=== PATIENT | male | born 1950 | race Caucasian/White ===

== ENCOUNTER 2018-08-22 10:00 | Day surgery (SDC) | payer OTHER ==
[2018-08-22 10:53] LABS: ADD MAN DIFF? NO
[2018-08-22 11:00] LABS: WHITE BLOOD COUNT 9.9 10^3/ul (4.8-10.8)
[2018-08-22 11:00] LABS: BASOPHILS % 0.4 % (0.0-2.0); EOSINOPHILS # 0.3 10^3/ul (0.0-0.5); EOSINOPHILS % 2.8 % (0.0-7.0); HEMATOCRIT 43.8 % (42.0-52.0); HEMOGLOBIN 14.4 g/dl (14.0-18.0); LYMPHOCYTES # 2.4 10^3/ul (0.8-2.9); LYMPHOCYTES % 23.8 % (15.0-51.0); MEAN CORPUSCULAR HEMOGLOBIN 29.3 pg (29.0-33.0); MEAN CORPUSCULAR HGB CONC 32.9 g/dl (32.0-37.0); MEAN CORPUSCULAR VOLUME 89.2 fl (82.0-101.0); MEAN PLATELET VOLUME 10.4 fl (7.4-10.4); MONOCYTE # 0.7 10^3/ul (0.3-0.9); MONOCYTES % 6.8 % (0.0-11.0); NEUTROPHIL # 6.5 10^3/ul (1.6-7.5); PLATELET COUNT 275 10^3/UL (140-415); RED BLOOD COUNT 4.91 10^6/ul (4.70-6.10)
[2018-08-22 11:10] LABS: INR 1.07; PARTIAL THROMBOPLASTIN TIME 30.9 Sec (23.0-35.0); PT RATIO 1.1
[2018-08-22 11:14] LABS: ALANINE AMINOTRANSFERASE 23 IU/L (13-69); ALBUMIN 4.4 g/dl (3.3-4.9); ALBUMIN/GLOBULIN RATIO 1.37; ALKALINE PHOSPHATASE 101 IU/L (42-121); ANION GAP 9 (5-13); ASPARTATE AMINO TRANSFERASE 24 IU/L (15-46); BILIRUBIN,INDIRECT 0.8 mg/dl (0-1.1); BILIRUBIN,TOTAL 0.8 mg/dl (0.2-1.3); BLOOD UREA NITROGEN 16 mg/dl (7-20); CALCIUM 9.5 mg/dl (8.4-10.2); CARBON DIOXIDE 27 mmol/L (21-31); CHLORIDE 108 mmol/L (97-110); CREATININE 0.68 mg/dl (0.61-1.24); Estimated GFR > 60 mL/min (>60); GLUCOSE 120 mg/dl (70-220); POTASSIUM 4.2 mmol/L (3.5-5.1); SODIUM 144 mmol/L (135-144); TOTAL PROTEIN 7.6 g/dl (6.1-8.1)
[2018-08-22] MEDS ORDERED: ROPIVACAINE 0.5 % 30 ML VIAL (11:20)
[2018-08-22] MEDS ORDERED: POLYMYXIN/BACITRACIN 1L IRRIG (11:20)
== END 2018-08-22 13:00 | disposition home or self-care (01) ==
LOC: SDS 10:00
DX: M13.871 Other specified arthritis, right ankle and foot (principal); Z53.8 Procedure and treatment not carried out for other reasons; Z79.02 Long term (current) use of antithrombotics/antiplatelets; I11.0 Hypertensive heart disease with heart failure; I50.32 Chronic diastolic (congestive) heart failure; E78.2 Mixed hyperlipidemia; E11.36 Type 2 diabetes mellitus with diabetic cataract; E11.51 Type 2 diabetes mellitus with diabetic peripheral angiopathy without gangrene; Z86.73 Personal history of transient ischemic attack (TIA), and cerebral infarction without residual deficits; Z87.891 Personal history of nicotine dependence
CPT/HCPCS: 80053; 82962; 85025; 85610; 85730

== ENCOUNTER 2018-08-30 05:37 | Inpatient (IN) | payer OTHER ==
[2018-08-30 06:41] LABS: ADD MAN DIFF? NO
[2018-08-30 06:45] LABS: BASOPHIL # 0.1 10^3/ul (0.0-0.1); BASOPHILS % 0.5 % (0.0-2.0); EOSINOPHILS # 0.4 10^3/ul (0.0-0.5); EOSINOPHILS % 3.4 % (0.0-7.0); HEMATOCRIT 42.2 % (42.0-52.0); HEMOGLOBIN 13.6 g/dl (14.0-18.0); LYMPHOCYTES # 2.5 10^3/ul (0.8-2.9); LYMPHOCYTES % 23.4 % (15.0-51.0); MEAN CORPUSCULAR HEMOGLOBIN 28.8 pg (29.0-33.0); MEAN CORPUSCULAR HGB CONC 32.2 g/dl (32.0-37.0); MEAN CORPUSCULAR VOLUME 89.4 fl (82.0-101.0); MEAN PLATELET VOLUME 11.3 fl (7.4-10.4); MONOCYTE # 0.9 10^3/ul (0.3-0.9); MONOCYTES % 8.1 % (0.0-11.0); NEUTROPHIL # 6.8 10^3/ul (1.6-7.5); NEUTROPHILS % 64.1 % (39.0-77.0); PLATELET COUNT 215 10^3/UL (140-415); RED BLOOD COUNT 4.72 10^6/ul (4.70-6.10); RED CELL DISTRIBUTION WIDTH 12.9 % (11.5-14.5)
[2018-08-30 06:45] LABS: WHITE BLOOD COUNT 10.6 10^3/ul (4.8-10.8)
[2018-08-30 06:47] LABS: INR 1.05; PROTIME 13.8 Sec (11.9-14.9); PT RATIO 1.1
[2018-08-30 06:48] LABS: PARTIAL THROMBOPLASTIN TIME 30.4 Sec (23.0-35.0)
[2018-08-30 06:50] LABS: UR BACTERIA FEW /HPF (NONE SEEN); UR HYALINE CAST FEW /HPF (NONE SEEN); UR MUCUS FEW /HPF (NONE SEEN); UR RBC 1 /HPF (0-5); UR WBC 1 /HPF (0-5)
[2018-08-30 06:51] LABS: ALANINE AMINOTRANSFERASE 27 IU/L (13-69); ALBUMIN 4.2 g/dl (3.3-4.9); ALKALINE PHOSPHATASE 86 IU/L (42-121); ANION GAP 11 (5-13); ASPARTATE AMINO TRANSFERASE 22 IU/L (15-46); BILIRUBIN,INDIRECT 0.6 mg/dl (0-1.1); BILIRUBIN,TOTAL 0.6 mg/dl (0.2-1.3); BLOOD UREA NITROGEN 20 mg/dl (7-20); CALCIUM 9.6 mg/dl (8.4-10.2); CARBON DIOXIDE 26 mmol/L (21-31); CHLORIDE 106 mmol/L (97-110); CREATININE 0.81 mg/dl (0.61-1.24); Estimated GFR > 60 mL/min (>60); GLUCOSE 112 mg/dl (70-220); POTASSIUM 4.3 mmol/L (3.5-5.1); SODIUM 143 mmol/L (135-144); TOTAL PROTEIN 7.2 g/dl (6.1-8.1)
[2018-08-30] MEDS ORDERED: DESFLURANE 15 MIN (07:00)
[2018-08-30 07:01] LABS: ADD UMIC YES; UR ASCORBIC ACID NEGATIVE (NEGATIVE); UR BILIRUBIN (Dip) NEGATIVE (NEGATIVE); UR BLOOD (Dip) 1+ mg/dL (NEGATIVE); UR CLARITY CLEAR (CLEAR); UR COLOR YELLOW (YELLOW); UR GLUCOSE (Dip) NEGATIVE (NEGATIVE); UR KETONES (Dip) NEGATIVE (NEGATIVE); UR LEUKOCYTE ESTERASE (Dip) NEGATIVE Leu/ul (NEGATIVE); UR NITRITE (Dip) NEGATIVE (NEGATIVE); UR TOTAL PROTEIN (Dip) NEGATIVE (NEGATIVE); UR UROBILINOGEN (Dip) NEGATIVE (NEGATIVE)
[2018-08-30] MEDS ORDERED: ROCURONIUM 50 MG INJ ×2 (07:23→11:24)
[2018-08-30] MEDS ORDERED: MIDAZOLAM 1 MG/ML 2 ML INJ (07:23)
[2018-08-30] MEDS ORDERED: CEFAZOLIN 1 GM INJ (07:23)
[2018-08-30] MEDS ORDERED: PROPOFOL 20 ML (07:23)
[2018-08-30] MEDS ORDERED: METOCLOPRAMIDE 10 MG INJ (07:24)
[2018-08-30] MEDS ORDERED: ROPIVACAINE 0.5 % 30 ML VIAL ×2 (07:24→07:32)
[2018-08-30] MEDS ORDERED: ONDANSETRON 4 MG INJ (07:24)
[2018-08-30] MEDS ORDERED: FENTAnyl 50 MCG/ML VIAL (07:26)
[2018-08-30] MEDS ORDERED: DIPHENHYDRAMINE 25 MG CAP PO (08:00)
[2018-08-30] MEDS ORDERED: CEFAZOLIN 1 GM INJ IV (08:00)
[2018-08-30] MEDS ORDERED: SODIUM CL BACTERIOSTATIC 30 ML INJ (08:03)
[2018-08-30] MEDS ORDERED: hydrALAzine 20 MG INJ IV (08:30)
[2018-08-30] MEDS ORDERED: FENTAnyl 50 MCG/ML VIAL IV ×3 (08:30)
[2018-08-30] MEDS ORDERED: LABETALOL HCL 20MG INJ IV (08:30)
[2018-08-30] MEDS ORDERED: HYDROmorphONE 1 MG/5 ML IV SYRINGE IV ×3 (08:30)
[2018-08-30] MEDS ORDERED: OXYCODONE/ACETAMINOPHEN (5/325) TAB PO ×2 (08:30)
[2018-08-30] MEDS ORDERED: ALBUTEROL 0.083% (NEB) 2.5 MG/3 ML AMP HHN (08:30)
[2018-08-30] MEDS ORDERED: ONDANSETRON 4 MG INJ IV (08:30)
[2018-08-30] MEDS ORDERED: EPHEDrine SULFATE 50 MG/5 ML SYG IV (08:30)
[2018-08-30] MEDS ORDERED: MEPERIDINE 25 MG INJ IV (08:30)
[2018-08-30] MEDS ORDERED: DIPHENHYDRAMINE 50 MG INJ IV (08:30)
[2018-08-30] MEDS: POLYMYXIN/BACITRACIN 1L IRRIG (08:41)
[2018-08-30] MEDS: HEPARIN 1000 UNITS/ML 10 ML INJ (08:41)
[2018-08-30] MEDS ORDERED: HYDROmorphONE 2 MG/ML SYG (08:52)
[2018-08-30] MEDS ORDERED: POLYMYXIN/BACITRACIN 1L IRRIG (09:45)
[2018-08-30] MEDS ORDERED: hydrALAzine 20 MG INJ (10:53)
[2018-08-30] MEDS ORDERED: EPHEDrine 50 MG INJ ×2 (11:36→11:43)
[2018-08-30] MEDS ORDERED: CHOLECALCIFEROL 2,000 UNIT CAP PO (12:30)
[2018-08-30] MEDS: GABAPENTIN 300 MG CAP PO ×2 (14:22→21:04)
[2018-08-30] MEDS: ASCORBIC ACID 500 MG TAB PO (14:23)
[2018-08-30] MEDS: oxyCODONE 5 MG TAB PO ×3 (14:23→21:00)
[2018-08-30] MEDS: CHOLECALCIFEROL 1,000 UNIT TAB PO (14:50)
[2018-08-30] MEDS ORDERED: GLUCOSE GEL 15 GRAM TUBE PO ×2 (15:00)
[2018-08-30] MEDS ORDERED: GLUCAGON 1 MG INJ IM (15:00)
[2018-08-30] MEDS ORDERED: DEXTROSE 50% 50 ML SYRINGE IV ×2 (15:00)
[2018-08-30] MEDS ORDERED: GLUCOSE GEL 15 GRAM TUBE BUCCAL (15:00)
[2018-08-30] MEDS: CEFAZOLIN 1 GM/50 ML (PMX) 50 ML IVPB ×2 (15:21→23:49)
[2018-08-30] MEDS: ASPIRIN (EC) 81 MG TAB PO (15:22)
[2018-08-30] MEDS: HYDROmorphONE 1 MG/ML SYG IV ×2 (15:23→21:03)
[2018-08-30] MEDS ORDERED: ZOLPIDEM 5 MG TAB PO (15:30)
[2018-08-30] MEDS: ONDANSETRON 4 MG INJ IV (15:30)
[2018-08-30] MEDS: ACCU-CHEK XX ×2 (17:54→21:16)
[2018-08-30] MEDS: metFORMIN 500 MG TAB PO (17:54)
[2018-08-30] MEDS: INSULIN ASPART [NOVOLOG] 3 ML PEN SC ×2 (17:57→21:16)
[2018-08-30] MEDS ORDERED: NITROGLYCERIN (SL) 0.4 MG TAB SL (20:00)
[2018-08-30] MEDS: LOSARTAN 50 MG TAB PO (21:04)
[2018-08-30] MEDS: ATORVASTATIN 40 MG TAB PO (21:04)
[2018-08-30] MEDS: RANITIDINE 150 MG TAB PO (21:04)
[2018-08-31 01:24] LABS: TROPONIN-I < 0.012 ng/ml (0.000-0.120)
[2018-08-31] MEDS: oxyCODONE 5 MG TAB PO ×6 (01:34→21:00)
[2018-08-31] MEDS: ACCU-CHEK XX ×5 (01:39→21:00)
[2018-08-31] MEDS: HYDROmorphONE 1 MG/ML SYG IV ×5 (04:02→21:11)
[2018-08-31 05:17] LABS: BASOPHILS % 0.3 % (0.0-2.0); EOSINOPHILS # 0.1 10^3/ul (0.0-0.5); EOSINOPHILS % 0.6 % (0.0-7.0); HEMATOCRIT 33.9 % (42.0-52.0); HEMOGLOBIN 10.9 g/dl (14.0-18.0); LYMPHOCYTES # 1.3 10^3/ul (0.8-2.9); LYMPHOCYTES % 13.3 % (15.0-51.0); MEAN CORPUSCULAR HEMOGLOBIN 29.2 pg (29.0-33.0); MEAN CORPUSCULAR HGB CONC 32.2 g/dl (32.0-37.0); MEAN CORPUSCULAR VOLUME 90.9 fl (82.0-101.0); MEAN PLATELET VOLUME 10.3 fl (7.4-10.4); MONOCYTE # 1.3 10^3/ul (0.3-0.9); MONOCYTES % 13.4 % (0.0-11.0); NEUTROPHIL # 6.8 10^3/ul (1.6-7.5); PLATELET COUNT 182 10^3/UL (140-415); RED BLOOD COUNT 3.73 10^6/ul (4.70-6.10); RED CELL DISTRIBUTION WIDTH 13.3 % (11.5-14.5)
[2018-08-31 05:17] LABS: WHITE BLOOD COUNT 9.5 10^3/ul (4.8-10.8)
[2018-08-31 05:18] LABS: ADD MAN DIFF? NO
[2018-08-31 05:41] LABS: CHOL/HDL RATIO 2.1 RATIO; LDL CHOLESTEROL,CALCULATED 31 mg/dl
[2018-08-31 05:42] LABS: HDL CHOLESTEROL 35 mg/dl (30-78); TRIGLYCERIDES 47 mg/dl (0-149)
[2018-08-31 05:42] LABS: CHOLESTEROL 75 mg/dl (100-200)
[2018-08-31 05:49] LABS: TROPONIN-I < 0.012 ng/ml (0.000-0.120)
[2018-08-31 05:49] LABS: ANION GAP 7 (5-13); BLOOD UREA NITROGEN 18 mg/dl (7-20); CALCIUM 8.5 mg/dl (8.4-10.2); CARBON DIOXIDE 26 mmol/L (21-31); CHLORIDE 104 mmol/L (97-110); CREATININE 0.69 mg/dl (0.61-1.24); Estimated GFR > 60 mL/min (>60); GLUCOSE 130 mg/dl (70-220); MAGNESIUM 1.2 mg/dl (1.7-2.5); SODIUM 137 mmol/L (135-144)
[2018-08-31 05:57] LABS: HEMOGLOBIN A1C 6.5 % (0-5.9)
[2018-08-31] MEDS: INSULIN ASPART [NOVOLOG] 3 ML PEN SC ×4 (07:50→21:00)
[2018-08-31] MEDS: CEFAZOLIN 1 GM/50 ML (PMX) 50 ML IVPB ×2 (08:16→15:40)
[2018-08-31] MEDS: RANITIDINE 150 MG TAB PO ×2 (08:32→21:08)
[2018-08-31] MEDS: metFORMIN 500 MG TAB PO ×2 (08:32→17:54)
[2018-08-31] MEDS: LOSARTAN 50 MG TAB PO ×2 (08:33→21:23)
[2018-08-31] MEDS: ASPIRIN (EC) 81 MG TAB PO (08:33)
[2018-08-31] MEDS: GABAPENTIN 300 MG CAP PO ×3 (08:33→21:07)
[2018-08-31] MEDS: ASCORBIC ACID 500 MG TAB PO (08:33)
[2018-08-31] MEDS: FOLIC ACID 1 MG TAB PO (08:48)
[2018-08-31] MEDS: ESCITALOPRAM 10 MG TAB PO (08:48)
[2018-08-31] MEDS: CHOLECALCIFEROL 1,000 UNIT TAB PO (08:48)
[2018-08-31] MEDS: AMLODIPINE 2.5 MG TAB PO (08:49)
[2018-08-31] MEDS: FUROSEMIDE 20 MG TAB PO (08:49)
[2018-08-31] MEDS ORDERED: CLOPIDOGREL 75 MG TAB PO (09:00)
[2018-08-31] MEDS: ONDANSETRON 4 MG INJ IV (10:23)
[2018-08-31] MEDS: FINASTERIDE 5 MG TAB PO (12:37)
[2018-08-31] MEDS: MAGNESIUM SULFATE 3 GM in DEXTROSE 5% 100 ML IVPB (12:38)
[2018-08-31 12:41] LABS: TROPONIN-I < 0.012 ng/ml (0.000-0.120)
[2018-08-31 13:07] LABS: PROSTATE SPECIFIC ANTIGEN 3.2 ng/ml (0.0-4.0)
[2018-08-31] MEDS ORDERED: ALFUZOSIN (SR) 10 MG TAB PO (14:00)
[2018-08-31] MEDS: ATORVASTATIN 40 MG TAB PO (21:07)
[2018-08-31] MEDS: ALFUZOSIN (SR) 10 MG TAB PO (21:08)
[2018-08-31] MEDS: BETHANECHOL 10 MG TAB PO (21:08)
[2018-08-31] MEDS: HEPARIN 5,000 UNIT/1 ML VIAL SC (21:22)
[2018-08-31] MEDS: MAGNESIUM HYDROXIDE 30ML CUP PO (23:41)
[2018-09-01] MEDS: CEFAZOLIN 1 GM/50 ML (PMX) 50 ML IVPB ×2 (01:00→08:17)
[2018-09-01] MEDS: oxyCODONE 5 MG TAB PO ×6 (01:01→20:22)
[2018-09-01] MEDS: ACCU-CHEK XX ×5 (02:00→21:00)
[2018-09-01 05:18] LABS: ADD MAN DIFF? NO
[2018-09-01 05:26] LABS: WHITE BLOOD COUNT 11.8 10^3/ul (4.8-10.8)
[2018-09-01 05:26] LABS: BASOPHILS % 0.3 % (0.0-2.0); EOSINOPHILS # 0.1 10^3/ul (0.0-0.5); EOSINOPHILS % 0.4 % (0.0-7.0); HEMATOCRIT 33.9 % (42.0-52.0); HEMOGLOBIN 11.1 g/dl (14.0-18.0); LYMPHOCYTES # 1.2 10^3/ul (0.8-2.9); LYMPHOCYTES % 9.7 % (15.0-51.0); MEAN CORPUSCULAR HEMOGLOBIN 29.1 pg (29.0-33.0); MEAN CORPUSCULAR HGB CONC 32.7 g/dl (32.0-37.0); MEAN PLATELET VOLUME 11.3 fl (7.4-10.4); MONOCYTE # 1.4 10^3/ul (0.3-0.9); MONOCYTES % 11.8 % (0.0-11.0); NEUTROPHIL # 9.1 10^3/ul (1.6-7.5); NEUTROPHILS % 77.3 % (39.0-77.0); PLATELET COUNT 161 10^3/UL (140-415); RED BLOOD COUNT 3.81 10^6/ul (4.70-6.10); RED CELL DISTRIBUTION WIDTH 13.3 % (11.5-14.5)
[2018-09-01 05:36] LABS: BLOOD UREA NITROGEN 17 mg/dl (7-20); CALCIUM 8.8 mg/dl (8.4-10.2); CARBON DIOXIDE 28 mmol/L (21-31); CREATININE 0.75 mg/dl (0.61-1.24); Estimated GFR > 60 mL/min (>60); GLUCOSE 148 mg/dl (70-220); POTASSIUM 4.1 mmol/L (3.5-5.1); SODIUM 137 mmol/L (135-144)
[2018-09-01 06:48] LABS: ANION GAP 7 (5-13); CHLORIDE 102 mmol/L (97-110)
[2018-09-01] MEDS: HYDROmorphONE 1 MG/ML SYG IV ×2 (08:15→14:03)
[2018-09-01] MEDS: ESCITALOPRAM 10 MG TAB PO (09:09)
[2018-09-01] MEDS: metFORMIN 500 MG TAB PO ×2 (09:09→17:44)
[2018-09-01] MEDS: FUROSEMIDE 20 MG TAB PO (09:09)
[2018-09-01] MEDS: RANITIDINE 150 MG TAB PO ×2 (09:09→20:19)
[2018-09-01] MEDS: ASPIRIN (EC) 81 MG TAB PO (09:10)
[2018-09-01] MEDS: AMLODIPINE 2.5 MG TAB PO (09:10)
[2018-09-01] MEDS: LOSARTAN 50 MG TAB PO ×2 (09:10→21:00)
[2018-09-01] MEDS: GABAPENTIN 300 MG CAP PO ×3 (09:10→20:19)
[2018-09-01] MEDS: ASCORBIC ACID 500 MG TAB PO (09:10)
[2018-09-01] MEDS: CHOLECALCIFEROL 1,000 UNIT TAB PO (09:11)
[2018-09-01] MEDS: FINASTERIDE 5 MG TAB PO (09:11)
[2018-09-01] MEDS: BETHANECHOL 10 MG TAB PO ×2 (09:11→13:12)
[2018-09-01] MEDS: HEPARIN 5,000 UNIT/1 ML VIAL SC ×2 (09:19→20:27)
[2018-09-01] MEDS: FOLIC ACID 1 MG TAB PO (09:20)
[2018-09-01] MEDS: INSULIN ASPART [NOVOLOG] 3 ML PEN SC ×4 (09:20→20:27)
[2018-09-01] MEDS: ATORVASTATIN 40 MG TAB PO (20:19)
[2018-09-01] MEDS: BETHANECHOL 25 MG TAB PO (20:20)
[2018-09-01] MEDS: ALFUZOSIN (SR) 10 MG TAB PO (20:21)
[2018-09-02] MEDS: oxyCODONE 5 MG TAB PO ×5 (01:27→17:22)
[2018-09-02] MEDS: ACCU-CHEK XX ×5 (02:00→21:28)
[2018-09-02] MEDS: MAGNESIUM HYDROXIDE 30ML CUP PO ×2 (02:30→05:08)
[2018-09-02 05:23] LABS: ADD MAN DIFF? NO
[2018-09-02 05:30] LABS: WHITE BLOOD COUNT 13.3 10^3/ul (4.8-10.8)
[2018-09-02 05:30] LABS: BASOPHILS % 0.3 % (0.0-2.0); EOSINOPHILS # 0.2 10^3/ul (0.0-0.5); EOSINOPHILS % 1.5 % (0.0-7.0); HEMATOCRIT 31.3 % (42.0-52.0); HEMOGLOBIN 10.1 g/dl (14.0-18.0); LYMPHOCYTES % 14.6 % (15.0-51.0); MEAN CORPUSCULAR HEMOGLOBIN 29.3 pg (29.0-33.0); MEAN CORPUSCULAR HGB CONC 32.3 g/dl (32.0-37.0); MEAN CORPUSCULAR VOLUME 90.7 fl (82.0-101.0); MONOCYTE # 1.3 10^3/ul (0.3-0.9); MONOCYTES % 9.8 % (0.0-11.0); NEUTROPHIL # 9.8 10^3/ul (1.6-7.5); NEUTROPHILS % 73.4 % (39.0-77.0); PLATELET COUNT 167 10^3/UL (140-415); RED BLOOD COUNT 3.45 10^6/ul (4.70-6.10); RED CELL DISTRIBUTION WIDTH 13.2 % (11.5-14.5)
[2018-09-02 05:59] LABS: ANION GAP 4 (5-13); BLOOD UREA NITROGEN 23 mg/dl (7-20); CALCIUM 8.7 mg/dl (8.4-10.2); CARBON DIOXIDE 28 mmol/L (21-31); CHLORIDE 103 mmol/L (97-110); CREATININE 0.83 mg/dl (0.61-1.24); Estimated GFR > 60 mL/min (>60); GLUCOSE 136 mg/dl (70-220); SODIUM 135 mmol/L (135-144)
[2018-09-02] MEDS: INSULIN ASPART [NOVOLOG] 3 ML PEN SC ×4 (07:50→21:00)
[2018-09-02] MEDS: GABAPENTIN 300 MG CAP PO ×2 (09:01→12:56)
[2018-09-02] MEDS: ASPIRIN (EC) 81 MG TAB PO ×2 (09:01→21:30)
[2018-09-02] MEDS: FOLIC ACID 1 MG TAB PO (09:01)
[2018-09-02] MEDS: RANITIDINE 150 MG TAB PO ×2 (09:01→21:30)
[2018-09-02] MEDS: FINASTERIDE 5 MG TAB PO (09:01)
[2018-09-02] MEDS: ASCORBIC ACID 500 MG TAB PO (09:02)
[2018-09-02] MEDS: ESCITALOPRAM 10 MG TAB PO (09:02)
[2018-09-02] MEDS: BETHANECHOL 25 MG TAB PO ×3 (09:02→21:30)
[2018-09-02] MEDS: FUROSEMIDE 20 MG TAB PO (09:03)
[2018-09-02] MEDS: CHOLECALCIFEROL 1,000 UNIT TAB PO (09:03)
[2018-09-02] MEDS: LOSARTAN 50 MG TAB PO ×2 (09:03→21:29)
[2018-09-02] MEDS: HEPARIN 5,000 UNIT/1 ML VIAL SC ×2 (09:04→21:32)
[2018-09-02] MEDS: metFORMIN 500 MG TAB PO ×3 (09:13→17:55)
[2018-09-02] MEDS: AMLODIPINE 2.5 MG TAB PO (09:13)
[2018-09-02] MEDS: LORAZEPAM 1 MG TAB PO (12:47)
[2018-09-02] MEDS ORDERED: OXYCODONE/ACETAMINOPHEN (5/325) TAB PO (18:30)
[2018-09-02 18:37] LABS: MAGNESIUM 1.9 mg/dl (1.7-2.5)
[2018-09-02] MEDS: D5W-0.45 NACL + KCL 20 MEQ 1,000 ML IV (19:11)
[2018-09-02] MEDS: MAGNESIUM SULFATE 2 GM/50 ML 50 ML IVPB (19:12)
[2018-09-02] MEDS ORDERED: HYDROCODONE/APAP (5/325) TAB PO (20:00)
[2018-09-02] MEDS: ALFUZOSIN (SR) 10 MG TAB PO (21:29)
[2018-09-02] MEDS: DOCUSATE SODIUM 100 MG CAP PO (21:29)
[2018-09-02] MEDS: SENNA TAB PO (21:30)
[2018-09-02] MEDS: DIPHENHYDRAMINE 50 MG CAP PO (21:30)
[2018-09-02] MEDS: ATORVASTATIN 40 MG TAB PO (21:30)
[2018-09-02 22:01] LABS: ADD UMIC YES; UR ASCORBIC ACID 40 mg/dL (NEGATIVE); UR BILIRUBIN (Dip) NEGATIVE (NEGATIVE); UR BLOOD (Dip) NEGATIVE (NEGATIVE); UR CLARITY CLEAR (CLEAR); UR COLOR YELLOW (YELLOW); UR GLUCOSE (Dip) NEGATIVE (NEGATIVE); UR KETONES (Dip) NEGATIVE (NEGATIVE); UR LEUKOCYTE ESTERASE (Dip) NEGATIVE Leu/ul (NEGATIVE); UR MUCUS FEW /HPF (NONE SEEN); UR NITRITE (Dip) NEGATIVE (NEGATIVE); UR RBC 10 /HPF (0-5); UR SPECIFIC GRAVITY (Dip) 1.019 (1.003-1.030); UR TOTAL PROTEIN (Dip) 1+ mg/dl (NEGATIVE); UR UROBILINOGEN (Dip) NEGATIVE (NEGATIVE); UR WBC 2 /HPF (0-5)
[2018-09-02] MEDS: HALOPERIDOL 5 MG INJ IM (23:45)
[2018-09-03] MEDS ORDERED: LORAZEPAM 2 MG INJ IV (01:30)
[2018-09-03] MEDS: LORAZEPAM 2 MG INJ IV ×4 (01:40→22:40)
[2018-09-03] MEDS: ACCU-CHEK XX ×5 (02:00→21:00)
[2018-09-03] MEDS: metFORMIN 500 MG TAB PO (09:02)
[2018-09-03] MEDS: CHOLECALCIFEROL 1,000 UNIT TAB PO (09:02)
[2018-09-03] MEDS: HYDROCODONE/APAP (10/325) TAB PO (09:02)
[2018-09-03] MEDS: SENNA TAB PO (09:03)
[2018-09-03] MEDS: BETHANECHOL 25 MG TAB PO (09:03)
[2018-09-03] MEDS: ASPIRIN (EC) 81 MG TAB PO ×2 (09:03→22:23)
[2018-09-03] MEDS: ESCITALOPRAM 10 MG TAB PO (09:03)
[2018-09-03] MEDS: FINASTERIDE 5 MG TAB PO (09:03)
[2018-09-03] MEDS: RANITIDINE 150 MG TAB PO (09:03)
[2018-09-03] MEDS: ASCORBIC ACID 500 MG TAB PO (09:03)
[2018-09-03] MEDS: DOCUSATE SODIUM 100 MG CAP PO ×2 (09:04→22:22)
[2018-09-03] MEDS: FUROSEMIDE 20 MG TAB PO (09:04)
[2018-09-03] MEDS: AMLODIPINE 2.5 MG TAB PO (09:05)
[2018-09-03] MEDS: LOSARTAN 50 MG TAB PO (09:05)
[2018-09-03] MEDS: FOLIC ACID 1 MG TAB PO (09:05)
[2018-09-03] MEDS: HEPARIN 5,000 UNIT/1 ML VIAL SC ×2 (09:06→22:38)
[2018-09-03] MEDS: INSULIN ASPART [NOVOLOG] 3 ML PEN SC ×4 (09:07→21:00)
[2018-09-03] MEDS: D5W-0.45 NACL + KCL 20 MEQ 1,000 ML IV (09:21)
[2018-09-03 09:43] LABS: ADD MAN DIFF? NO
[2018-09-03 09:52] LABS: WHITE BLOOD COUNT 11.8 10^3/ul (4.8-10.8)
[2018-09-03 09:52] LABS: BASOPHILS % 0.3 % (0.0-2.0); EOSINOPHILS % 0.1 % (0.0-7.0); HEMATOCRIT 30.9 % (42.0-52.0); HEMOGLOBIN 10.1 g/dl (14.0-18.0); LYMPHOCYTES # 0.9 10^3/ul (0.8-2.9); LYMPHOCYTES % 7.5 % (15.0-51.0); MEAN CORPUSCULAR HEMOGLOBIN 29.3 pg (29.0-33.0); MEAN CORPUSCULAR HGB CONC 32.7 g/dl (32.0-37.0); MEAN CORPUSCULAR VOLUME 89.6 fl (82.0-101.0); MEAN PLATELET VOLUME 9.9 fl (7.4-10.4); MONOCYTE # 1.1 10^3/ul (0.3-0.9); MONOCYTES % 9.3 % (0.0-11.0); NEUTROPHIL # 9.7 10^3/ul (1.6-7.5); NEUTROPHILS % 82.2 % (39.0-77.0); PLATELET COUNT 206 10^3/UL (140-415); RED BLOOD COUNT 3.45 10^6/ul (4.70-6.10); RED CELL DISTRIBUTION WIDTH 12.9 % (11.5-14.5)
[2018-09-03 10:07] LABS: ANION GAP 10 (5-13); BLOOD UREA NITROGEN 14 mg/dl (7-20); CALCIUM 8.6 mg/dl (8.4-10.2); CARBON DIOXIDE 25 mmol/L (21-31); CHLORIDE 101 mmol/L (97-110); CREATININE 0.61 mg/dl (0.61-1.24); Estimated GFR > 60 mL/min (>60); GLUCOSE 185 mg/dl (70-220); MAGNESIUM 1.9 mg/dl (1.7-2.5); PHOSPHORUS 2.7 mg/dl (2.5-4.9); POTASSIUM 3.8 mmol/L (3.5-5.1); SODIUM 136 mmol/L (135-144)
[2018-09-03] MEDS: LORAZEPAM 1 MG TAB PO (10:21)
[2018-09-03] MEDS: QUETIAPINE 25 MG TAB PO (12:49)
[2018-09-03] MEDS: ALBUTEROL 0.083% (NEB) 2.5 MG/3 ML AMP HHN (19:11)
[2018-09-03] MEDS: CHOLECALCIFEROL 2,000 UNIT CAP PO (22:23)
[2018-09-04] MEDS: LORAZEPAM 2 MG INJ IV ×2 (01:07→04:27)
[2018-09-04] MEDS: HALOPERIDOL 5 MG INJ IM ×2 (01:07→04:27)
[2018-09-04 06:16] LABS: ADD MAN DIFF? NO
[2018-09-04 06:21] LABS: WHITE BLOOD COUNT 9.7 10^3/ul (4.8-10.8)
[2018-09-04 06:21] LABS: BASOPHILS % 0.3 % (0.0-2.0); EOSINOPHILS # 0.3 10^3/ul (0.0-0.5); EOSINOPHILS % 2.7 % (0.0-7.0); HEMATOCRIT 29.2 % (42.0-52.0); HEMOGLOBIN 9.9 g/dl (14.0-18.0); LYMPHOCYTES # 1.5 10^3/ul (0.8-2.9); LYMPHOCYTES % 15.2 % (15.0-51.0); MEAN CORPUSCULAR HGB CONC 33.9 g/dl (32.0-37.0); MEAN CORPUSCULAR VOLUME 88.5 fl (82.0-101.0); MEAN PLATELET VOLUME 10.1 fl (7.4-10.4); MONOCYTE # 1.3 10^3/ul (0.3-0.9); MONOCYTES % 13.1 % (0.0-11.0); NEUTROPHIL # 6.7 10^3/ul (1.6-7.5); NEUTROPHILS % 68.4 % (39.0-77.0); PLATELET COUNT 239 10^3/UL (140-415); RED CELL DISTRIBUTION WIDTH 13.1 % (11.5-14.5)
[2018-09-04 06:49] LABS: ALANINE AMINOTRANSFERASE 36 IU/L (13-69); ALBUMIN 3.1 g/dl (3.3-4.9); ALBUMIN/GLOBULIN RATIO 1.03; ALKALINE PHOSPHATASE 56 IU/L (42-121); ANION GAP 9 (5-13); ASPARTATE AMINO TRANSFERASE 58 IU/L (15-46); BLOOD UREA NITROGEN 17 mg/dl (7-20); CALCIUM 8.8 mg/dl (8.4-10.2); CARBON DIOXIDE 24 mmol/L (21-31); CHLORIDE 110 mmol/L (97-110); CREATININE 0.63 mg/dl (0.61-1.24); Estimated GFR > 60 mL/min (>60); GLUCOSE 109 mg/dl (70-220); POTASSIUM 3.3 mmol/L (3.5-5.1); SODIUM 143 mmol/L (135-144); TOTAL PROTEIN 6.1 g/dl (6.1-8.1)
[2018-09-04] MEDS: ACCU-CHEK XX ×4 (07:00→21:24)
[2018-09-04 07:20] LABS: THYROID STIMULATING HORMONE 0.783 MIU/L (0.465-4.680)
[2018-09-04] MEDS: INSULIN ASPART [NOVOLOG] 3 ML PEN SC ×4 (08:00→20:31)
[2018-09-04] MEDS: DOCUSATE SODIUM 100 MG CAP PO ×2 (09:00→20:26)
[2018-09-04] MEDS: FUROSEMIDE 20 MG TAB PO (09:00)
[2018-09-04] MEDS: ASPIRIN (EC) 81 MG TAB PO ×2 (09:00→20:27)
[2018-09-04] MEDS: HEPARIN 5,000 UNIT/1 ML VIAL SC ×2 (10:30→20:48)
[2018-09-04] MEDS: QUETIAPINE 25 MG TAB PO ×2 (11:30→20:27)
[2018-09-04 12:27] LABS: AMMONIA < 9 umol/l (9-30)
[2018-09-04 12:34] LABS: INR 1.28; PROTIME 16.1 Sec (11.9-14.9); PT RATIO 1.3
[2018-09-04] MEDS: DEXTROSE 5%-0.45% NACL 1,000 ML IV (12:39)
[2018-09-04 13:39] LABS: AADO2 Arterial 44.6 mmHg (7.0-24.0); Arterial Base Excess -0.6 mmol/L (-3.0-3); Arterial COHb 0.3 % (0.0-3.0); Arterial Fraction of Oxyhgb 94.5 % (93.0-99.0); Arterial HCO3 21.2 mmol/L (22.0-26.0); Arterial MetHb 0.2 % (0.0-1.5); Arterial pCO2 26.3 mmhg (35-45); MODE ROOM AIR; Site LB
[2018-09-04] MEDS: ACETAMINOPHEN 1000MG/100ML IV 100 ML IVPB ×2 (14:42→21:21)
[2018-09-05] MEDS: DEXTROSE 5%-0.45% NACL 1,000 ML IV ×3 (00:50→20:36)
[2018-09-05] MEDS: HALOPERIDOL 5 MG INJ IM (01:09)
[2018-09-05] MEDS: LEVALBUTEROL (NEB) 1.25 MG/0.5 ML AMP HHN (04:48)
[2018-09-05 05:52] LABS: ADD MAN DIFF? NO
[2018-09-05] MEDS: ACETAMINOPHEN 1000MG/100ML IV 100 ML IVPB ×3 (05:54→17:51)
[2018-09-05 06:08] LABS: BASOPHIL # 0.1 10^3/ul (0.0-0.1); BASOPHILS % 0.4 % (0.0-2.0); EOSINOPHILS # 0.5 10^3/ul (0.0-0.5); EOSINOPHILS % 3.9 % (0.0-7.0); HEMOGLOBIN 10.6 g/dl (14.0-18.0); LYMPHOCYTES # 1.9 10^3/ul (0.8-2.9); LYMPHOCYTES % 16.4 % (15.0-51.0); MEAN CORPUSCULAR HEMOGLOBIN 29.3 pg (29.0-33.0); MEAN CORPUSCULAR HGB CONC 33.1 g/dl (32.0-37.0); MEAN CORPUSCULAR VOLUME 88.4 fl (82.0-101.0); MEAN PLATELET VOLUME 10.8 fl (7.4-10.4); MONOCYTE # 1.3 10^3/ul (0.3-0.9); MONOCYTES % 10.9 % (0.0-11.0); NEUTROPHIL # 8.1 10^3/ul (1.6-7.5); NEUTROPHILS % 67.9 % (39.0-77.0); PLATELET COUNT 241 10^3/UL (140-415); RED BLOOD COUNT 3.62 10^6/ul (4.70-6.10); RED CELL DISTRIBUTION WIDTH 13.1 % (11.5-14.5)
[2018-09-05 06:08] LABS: WHITE BLOOD COUNT 11.9 10^3/ul (4.8-10.8)
[2018-09-05 06:48] LABS: ALANINE AMINOTRANSFERASE 47 IU/L (13-69); ALBUMIN 3.2 g/dl (3.3-4.9); ALBUMIN/GLOBULIN RATIO 1.03; ALKALINE PHOSPHATASE 60 IU/L (42-121); ANION GAP 12 (5-13); ASPARTATE AMINO TRANSFERASE 71 IU/L (15-46); BILIRUBIN,INDIRECT 0.9 mg/dl (0-1.1); BILIRUBIN,TOTAL 0.9 mg/dl (0.2-1.3); BLOOD UREA NITROGEN 16 mg/dl (7-20); CALCIUM 8.8 mg/dl (8.4-10.2); CARBON DIOXIDE 22 mmol/L (21-31); CHLORIDE 109 mmol/L (97-110); Estimated GFR > 60 mL/min (>60); GLUCOSE 134 mg/dl (70-220); MAGNESIUM 1.8 mg/dl (1.7-2.5); PHOSPHORUS 3.9 mg/dl (2.5-4.9); SODIUM 143 mmol/L (135-144); TOTAL PROTEIN 6.3 g/dl (6.1-8.1)
[2018-09-05] MEDS: ACCU-CHEK XX ×4 (07:00→20:32)
[2018-09-05] MEDS: INSULIN ASPART [NOVOLOG] 3 ML PEN SC ×4 (07:57→20:32)
[2018-09-05] MEDS: ASPIRIN (EC) 81 MG TAB PO ×2 (08:35→20:28)
[2018-09-05] MEDS: QUETIAPINE 25 MG TAB PO ×2 (08:35→20:28)
[2018-09-05] MEDS: DOCUSATE SODIUM 100 MG CAP PO ×3 (08:35→20:29)
[2018-09-05] MEDS: FUROSEMIDE 20 MG TAB PO (08:36)
[2018-09-05] MEDS: HEPARIN 5,000 UNIT/1 ML VIAL SC (08:49)
[2018-09-05] MEDS: POTASSIUM CHLORIDE 100 ML IVPB ×4 (10:44→20:29)
[2018-09-06] MEDS: ACETAMINOPHEN 1000MG/100ML IV 100 ML IVPB ×3 (00:04→12:06)
[2018-09-06 06:27] LABS: ADD MAN DIFF? NO
[2018-09-06 06:33] LABS: BASOPHIL # 0.1 10^3/ul (0.0-0.1); BASOPHILS % 0.5 % (0.0-2.0); EOSINOPHILS # 0.6 10^3/ul (0.0-0.5); EOSINOPHILS % 5.5 % (0.0-7.0); HEMATOCRIT 32.4 % (42.0-52.0); HEMOGLOBIN 10.6 g/dl (14.0-18.0); MEAN CORPUSCULAR HEMOGLOBIN 29.2 pg (29.0-33.0); MEAN CORPUSCULAR HGB CONC 32.7 g/dl (32.0-37.0); MEAN CORPUSCULAR VOLUME 89.3 fl (82.0-101.0); MEAN PLATELET VOLUME 9.6 fl (7.4-10.4); MONOCYTE # 0.9 10^3/ul (0.3-0.9); MONOCYTES % 8.1 % (0.0-11.0); NEUTROPHIL # 7.6 10^3/ul (1.6-7.5); NEUTROPHILS % 67.3 % (39.0-77.0); PLATELET COUNT 339 10^3/UL (140-415); RED BLOOD COUNT 3.63 10^6/ul (4.70-6.10); RED CELL DISTRIBUTION WIDTH 13.2 % (11.5-14.5)
[2018-09-06 06:33] LABS: WHITE BLOOD COUNT 11.4 10^3/ul (4.8-10.8)
[2018-09-06] MEDS: ACCU-CHEK XX ×2 (07:00→11:30)
[2018-09-06 07:09] LABS: ALANINE AMINOTRANSFERASE 43 IU/L (13-69); ALBUMIN 3.2 g/dl (3.3-4.9); ALBUMIN/GLOBULIN RATIO 1.03; ALKALINE PHOSPHATASE 60 IU/L (42-121); ANION GAP 9 (5-13); ASPARTATE AMINO TRANSFERASE 44 IU/L (15-46); BILIRUBIN,INDIRECT 0.6 mg/dl (0-1.1); BILIRUBIN,TOTAL 0.6 mg/dl (0.2-1.3); BLOOD UREA NITROGEN 12 mg/dl (7-20); CARBON DIOXIDE 20 mmol/L (21-31); CHLORIDE 114 mmol/L (97-110); CREATININE 0.58 mg/dl (0.61-1.24); Estimated GFR > 60 mL/min (>60); GLUCOSE 135 mg/dl (70-220); POTASSIUM 3.1 mmol/L (3.5-5.1); SODIUM 143 mmol/L (135-144); TOTAL PROTEIN 6.3 g/dl (6.1-8.1)
[2018-09-06] MEDS: INSULIN ASPART [NOVOLOG] 3 ML PEN SC ×2 (08:00→13:04)
[2018-09-06] MEDS: KETOROLAC 15 MG INJ IV (08:52)
[2018-09-06] MEDS: DOCUSATE SODIUM 100 MG CAP PO (09:00)
[2018-09-06] MEDS ORDERED: QUETIAPINE 25 MG TAB PO (09:00)
[2018-09-06] MEDS: FINASTERIDE 5 MG TAB PO (09:00)
[2018-09-06] MEDS: LOSARTAN 50 MG TAB PO (09:15)
[2018-09-06] MEDS: ASCORBIC ACID 500 MG TAB PO (09:15)
[2018-09-06] MEDS: AMLODIPINE 2.5 MG TAB PO (09:16)
[2018-09-06] MEDS: FOLIC ACID 1 MG TAB PO (09:16)
[2018-09-06] MEDS: QUETIAPINE 25 MG TAB PO (09:17)
[2018-09-06] MEDS: FUROSEMIDE 20 MG TAB PO (09:17)
[2018-09-06] MEDS: ASPIRIN (EC) 81 MG TAB PO (09:18)
[2018-09-06] MEDS: DEXTROSE 5%-0.45% NACL 1,000 ML IV (12:03)
[2018-09-06] MEDS: POTASSIUM CHLORIDE 100 ML IVPB (12:09)
[2018-09-06] MEDS ORDERED: ALBUTEROL 0.083% (NEB) 2.5 MG/3 ML AMP HHN (13:00)
[2018-09-06] MEDS: ALBUTEROL 0.083% (NEB) 2.5 MG/3 ML AMP HHN (13:17)
[2018-09-07] MEDS ORDERED: CLOPIDOGREL 75 MG TAB PO (09:00)
== END 2018-09-06 16:32 | disposition home health service (06) | DRG 492 ==
LOC: SDS 05:37 → 6WM 09-04 09:19 → SDS 05:37 → MS1 08-31 16:16 → SDS 12:49 → 6WM 09-03 20:08 → REC 12:49 → MS1 12:50
PROVIDERS: Family Medicine
PROC: 0SGF07Z Fusion of Right Ankle Joint with Autologous Tissue Substitute, Open Approach (ICD-10-PCS; principal; 2018-08-30 07:30)
PROC: 0SGF0KZ Fusion of Right Ankle Joint with Nonautologous Tissue Substitute, Open Approach (ICD-10-PCS; 2018-08-30 07:30)
PROC: 0SGF04Z Fusion of Right Ankle Joint with Internal Fixation Device, Open Approach (ICD-10-PCS; 2018-08-30 07:30)
PROC: 0JUQ0KZ Supplement of Right Foot Subcutaneous Tissue and Fascia with Nonautologous Tissue Substitute, Open Approach (ICD-10-PCS; 2018-08-30 07:30)
PROC: 0QB20ZZ Excision of Right Pelvic Bone, Open Approach (ICD-10-PCS; 2018-08-30 07:30)
PROC: 07DR0ZZ Extraction of Iliac Bone Marrow, Open Approach (ICD-10-PCS; 2018-08-30 07:30)
DX: M19.071 Primary osteoarthritis, right ankle and foot (principal); G92 Toxic encephalopathy; F05 Delirium due to known physiological condition; R07.9 Chest pain, unspecified; E83.42 Hypomagnesemia; E78.5 Hyperlipidemia, unspecified; E11.9 Type 2 diabetes mellitus without complications; F32.9 Major depressive disorder, single episode, unspecified; F41.9 Anxiety disorder, unspecified; G31.84 Mild cognitive impairment of uncertain or unknown etiology; I11.0 Hypertensive heart disease with heart failure; I50.9 Heart failure, unspecified; I25.10 Atherosclerotic heart disease of native coronary artery without angina pectoris; K59.00 Constipation, unspecified; M24.071 Loose body in right ankle; M65.871 Other synovitis and tenosynovitis, right ankle and foot; M11.262 Other chondrocalcinosis, left knee; M11.261 Other chondrocalcinosis, right knee; M25.669 Stiffness of unspecified knee, not elsewhere classified; N99.89 Other postprocedural complications and disorders of genitourinary system; R33.8 Other retention of urine; R58 Hemorrhage, not elsewhere classified; R13.10 Dysphagia, unspecified; T41.0X5A Adverse effect of inhaled anesthetics, initial encounter; Z86.73 Personal history of transient ischemic attack (TIA), and cerebral infarction without residual deficits; Z87.891 Personal history of nicotine dependence; Z95.1 Presence of aortocoronary bypass graft; Z79.84 Long term (current) use of oral hypoglycemic drugs; Z79.02 Long term (current) use of antithrombotics/antiplatelets; Z79.82 Long term (current) use of aspirin; Z79.83 Long term (current) use of bisphosphonates
CPT/HCPCS: 36600; 70450; 70551; 71045; 73560; 73610-RT; 76856; 80048; 80053; 80061; 81001; 82140; 82306; 82803; 82962; 83036; 83735; 84100; 84153; 84154; 84443; 84484; 85025; 85610; 85730; 87086; 88304; 92526; 92610; 93005; 93306; 94640; 94664; 97110; 97163; 97164; 97167; 97530; 99217